=== PATIENT | female | born 1965 | race Caucasian/White ===

== ENCOUNTER 2016-10-25 05:51 | Emergency (ER) | payer MEDICAID ==
[~2016-10-25 05:51] MED LIST: AMLODIPINE BES2.5 M1 PO; ASPIRIN81 MG PO; GLU500 PO; HYDROCHLOROTHIA25 MG PO; LAC PO; MAC100 PO; OMEPRAZOLE DR20 M1 PO; ZOCOR20 MG PO
[2016-10-25 07:34] VITALS: BP 184/92
== END 2016-10-25 07:34 | disposition home or self-care (01) ==
LOC: ED 05:51
DX: J11.1 Influenza due to unidentified influenza virus with other respiratory manifestations (principal); I10 Essential (primary) hypertension; E11.9 Type 2 diabetes mellitus without complications; Z79.84 Long term (current) use of oral hypoglycemic drugs; Z79.899 Other long term (current) drug therapy
CPT/HCPCS: 82962; J1885; Q0092

== ENCOUNTER 2017-01-11 22:02 | Emergency (ER) | payer SELFPAY | END 2017-01-11 23:50 | disposition left against medical advice (07) | LOC: ED 22:02 | DX: Z53.21 Procedure and treatment not carried out due to patient leaving prior to being seen by health care provider (principal) ==

== ENCOUNTER 2017-04-10 11:47 | Emergency (ER) | payer SELFPAY ==
[2017-04-10 14:47] LABS: BASOPHIL % 0.3 % (0-2); PLATELET COUNT 332 x10^3mcL (130-400); RED CELL DISTRIBUTION WIDTH 13.2 % (11.5-14.5)
[2017-04-10 14:59] LABS: CALCIUM 8.8 mg/dL (8.5-10.1); CARBON DIOXIDE 26.5 mmol/L (21-32); CHLORIDE SERUM 102 mmol/L (98-107); CREATININE SERUM 0.8 mg/dL (0.6-1.0); GFR1 > 60 mL/min; GLUCOSE SERUM 228 mg/dL (74-106); POTASSIUM SERUM 3.7 mmol/L (3.5-5.1); SODIUM SERUM 137 mmol/L (136-145)
[2017-04-10 15:08] LABS: ALBUMIN 3.6 g/dL (3.4-5.0); ALKALINE PHOSPHATASE 95 U/L (46-116); ALT/SGPT 55 U/L (14-59); AST/SGOT 22 U/L (15-37); BILIRUBIN TOTAL 0.35 mg/dL (0.20-1.00); CHOLESTEROL 147 mg/dL (<200); HDL CHOLESTEROL 43 mg/dL (40-60); MAGNESIUM 1.8 mg/dL (1.8-2.4); TOTAL PROTEIN, SERUM 7.7 g/dL (6.4-8.2)
[2017-04-10 17:53] VITALS: BP 140/79
== END 2017-04-10 17:53 | disposition home or self-care (01) ==
LOC: ED 11:47
PROVIDERS: Emergency Medicine
DX: M54.16 Radiculopathy, lumbar region (principal); M51.36 Other intervertebral disc degeneration, lumbar region; E11.65 Type 2 diabetes mellitus with hyperglycemia; I10 Essential (primary) hypertension; E66.01 Morbid (severe) obesity due to excess calories
CPT/HCPCS: 36415; 82962; 83880; J1100; J1885

== ENCOUNTER 2018-04-18 20:59 | Emergency (ER) | payer MEDICAID ==
[~2018-04-18] VITALS: Ht 157.5 cm; Wt 63.6 kg
[2018-04-18 21:09] VITALS: Ht 157.5 cm; Wt 63.6 kg
[2018-04-18 22:12] LABS: BASOPHIL % 0.3 % (0-2); PLATELET COUNT 336 x10^3mcL (130-400); RED CELL DISTRIBUTION WIDTH 12.2 % (11.5-14.5)
[2018-04-18 22:16] LABS: CALCIUM 8.8 mg/dL (8.5-10.1); CARBON DIOXIDE 27.8 mmol/L (21-32); CHLORIDE SERUM 102 mmol/L (98-107); CREATININE SERUM 0.9 mg/dL (0.6-1.0); GFR1 > 60 mL/min; GLUCOSE SERUM 429 mg/dL (74-106); POTASSIUM SERUM 3.6 mmol/L (3.5-5.1); SODIUM SERUM 138 mmol/L (136-145)
[2018-04-18 22:29] LABS: FREE T4 1.09 ng/dL (0.76-1.46)
[2018-04-18 22:44] LABS: microscopic required? YES; urine erythrocyte TRACE (NEGATIVE)
[2018-04-19 00:17] VITALS: BP 193/108
== END 2018-04-19 00:17 | disposition home or self-care (01) ==
LOC: ED 20:59
PROVIDERS: Emergency Medicine
DX: E11.65 Type 2 diabetes mellitus with hyperglycemia (principal); I10 Essential (primary) hypertension
CPT/HCPCS: 82962; 84439; J2405; J7030; J8597; Q0162

== ENCOUNTER 2018-07-26 20:27 | Emergency (ER) | payer SELFPAY ==
[~2018-07-26] VITALS: Ht 165.1 cm; Wt 83.9 kg
[2018-07-26 20:49] VITALS: Ht 165.1 cm; Wt 83.9 kg
[2018-07-26 21:24] VITALS: BP 115/86
== END 2018-07-26 21:24 | disposition home or self-care (01) ==
LOC: ED 20:27
DX: M25.549 Pain in joints of unspecified hand (principal); M79.606 Pain in leg, unspecified; R50.9 Fever, unspecified; I10 Essential (primary) hypertension; E11.9 Type 2 diabetes mellitus without complications; Z90.49 Acquired absence of other specified parts of digestive tract

== ENCOUNTER 2019-06-08 13:39 | Emergency (ER) | payer MEDICAID ==
[~2019-06-08] VITALS: Ht 152.4 cm; Wt 85.7 kg
[2019-06-08 13:46] VITALS: Ht 152.4 cm; Wt 85.7 kg
[2019-06-08 15:29] LABS: BASOPHIL % 0.3 % (0-2); PLATELET COUNT 390 x10^3mcL (130-400)
[2019-06-08 15:37] LABS: CALCIUM 8.9 mg/dL (8.5-10.1); CARBON DIOXIDE 29.1 mmol/L (21-32); CHLORIDE SERUM 105 mmol/L (98-107); CREATININE SERUM 0.7 mg/dL (0.6-1.0); GFR1 > 60 mL/min; GLUCOSE SERUM 159 mg/dL (74-106); SODIUM SERUM 141 mmol/L (136-145)
[2019-06-08 15:41] LABS: ALBUMIN 3.7 g/dL (3.4-5.0); ALKALINE PHOSPHATASE 89 U/L (46-116); ALT/SGPT 54 U/L (14-59); AST/SGOT 27 U/L (15-37); BILIRUBIN TOTAL 0.3 mg/dL (0.20-1.00); LIPASE 216 IU/L (73-393); TOTAL PROTEIN, SERUM 8.1 g/dL (6.4-8.2)
[2019-06-08 16:53] VITALS: BP 159/97
== END 2019-06-08 16:53 | disposition home or self-care (01) ==
LOC: ED 13:39
PROVIDERS: Emergency Medicine
DX: R10.816 Epigastric abdominal tenderness (principal); I10 Essential (primary) hypertension; E11.9 Type 2 diabetes mellitus without complications; E78.00 Pure hypercholesterolemia, unspecified
CPT/HCPCS: 36415; J1885; J7030